=== PATIENT | male | born 1955 | race Caucasian/White ===

== ENCOUNTER → 2019-11-02 | Outpatient (CLI) | payer MEDICARE, BC ==
--- NOTE | 2019-11-02 15:16 | KCIC ---
PA and lateral chest x-ray without comparison for dry cough for one year, nonsmoker. FINDINGS: The lungs are clear. Cardiomediastinum is grossly unremarkable. Degenerative changes of the midthoracic spine are noted with flowing osteophytes anteriorly. IMPRESSION: 1. No acute cardiopulmonary abnormality. Electronically signed by: Lm Bueno MD (11/02/2019 3:13 PM) [id number]
== END | disposition home or self-care (01) ==
LOC: KCIC 09:40
PROVIDERS: ATTEND Internal Medicine Pulmonary Disease
DX: R05 Cough (principal); M47.814 Spondylosis without myelopathy or radiculopathy, thoracic region; M25.78 Osteophyte, vertebrae
CPT/HCPCS: 71046